=== PATIENT | female | born 1945 | race African-American/Black ===

== ENCOUNTER 2017-10-28 07:00 | Inpatient (IN) | payer OTHER, MEDICARE ==
[~2017-10-28] VITALS: Ht 154.9 cm; Wt 90.3 kg
[2017-11-26] MEDS ORDERED: ASPIRIN EC81 M1 PO (15:43)
[2017-11-26] MEDS ORDERED: AZULFIDINE500 M1 (15:43)
[2017-11-26] MEDS ORDERED: B-121000 MC3 PO (15:44)
[2017-11-26] MEDS ORDERED: VOLTAREN100 GM TOP (15:44)
[2017-11-26] MEDS ORDERED: ESTRADIOL1 EAC7 (15:45)
[2017-11-26] MEDS ORDERED: FOLIC ACID1 M1 PO (15:45)
[2017-11-26] MEDS ORDERED: SERTRALINE HCL50 MG PO (15:46)
[2017-11-26] MEDS ORDERED: MECLIZINE HCL25 MG PO (15:46)
[2017-11-26] MEDS ORDERED: OMEPRAZOLE20 M3 PO (15:46)
[2017-11-26] MEDS ORDERED: TOPROL XL25 M1 PO (15:47)
[2017-11-26] MEDS ORDERED: NITROFURANTOIN100 M5 PO (15:47)
--- NOTE | 2017-11-27 10:35 | Admission Core Measures ---
Acute Coronary Syndrome (CM) ACS Core Measures Acute Coronary Syndrome Diagnosis No Congestive Heart Failure (NEW) CHF Core Measures Congestive Heart Failure Diagnosis No Cerebrovascular Accident CVA Core Measures CVA/TIA Diagnosis No Venous Thromboembolism VTE Core Danis (View Protocol) VTE Risk Factors Surgery No Mechanical VTE Prophylaxis d/t N/A MechProphylax Ordered No VTE Pharm Prophylaxis d/t NA PharmProphylax ordered HOME MEDS Home Med List Aspirin (Ecotrin*) 81 MG TABLET.DR 1 TAB PO DAILY CARDIAC (Reported) Cyanocobalamin (Vitamin B-12) (B-12) 1,000 MCG TABLET 1 TAB PO DAILY SUPPLMENT (Reported) Diclofenac Sodium (Voltaren) 1 % GEL..GRAM. 1 GM TOP 4 TIMES/DAY PAIN ( Reported) Folic Acid 1 MG TABLET 1 TAB PO DAILY SUPPLEMENT (Reported) Meclizine HCl 25 MG TABLET 1 TAB PO TIDPRN VERTIGO (Reported) Metoprolol Succ XL (Toprol XL) 25 MG TAB 1 TAB PO DAILY CARDIAC (Reported) Nitrofurantoin Macrocrystal (Nitrofurantoin) 100 MG CAPSULE 1 CAP PO BID UTI (Reported) Omeprazole 20 MG TABLET.DR 1 TAB PO DAILY GERD (Reported) Sertraline HCl 50 MG TABLET 1 TAB PO DAILY DEPRESSION (Reported)
[2017-11-27] MEDS ORDERED: ASPIRIN EC81 M1 PO (11:06)
[2017-11-27] MEDS ORDERED: MIRALAX17 G1 PO (11:06)
[2017-11-27] MEDS ORDERED: COLACE100 M1 PO (11:06)
[2017-11-27] MEDS ORDERED: DILAUDID2 M1 PO (11:06)
--- NOTE | 2017-11-27 11:11 | Patient Discharge Instructions ---
Discharge Instructions General Discharge Information You were seen/treated for: Left hip pain You had these procedures: Left total hip revision Watch for these problems: Fever over 100.4 Redness and swelling around wound Drainage from wound Numbness and tingling in left lower extremity Unable to bear weight on left lower extremity Chest pain or shortness of breath No bath, but you may shower: Yes Other wound care: Daily dry dressing change Keep incision clean and dry Diet Continue normal diet: Yes Activity Other activity limits: Toe-touch weightbearing on left leg for 6 weeks. Acute Coronary Syndrome Inclusion Criteria At DC or during hospital stay patient has or had the following: ACS DIAGNOSIS No Discharge Core Measures Meds if any: Prescribed or Continued at Discharge Meds if any: NOT Prescribed or Continued at Discharge Congestive Heart Failure Inclusion Criteria At DC or during hospital stay patient has or had the following: CHF DIAGNOSIS No Discharge Core Measures Meds if any: Prescribed or Continued at Discharge Meds if any: NOT Prescribed or Continued at Discharge Cerebrovascular accident Inclusion Criteria At DC or during hospital stay patient has or had the following: CVA/TIA Diagnosis No Discharge Core Measures Meds if any: Prescribed or Continued at Discharge Meds if any: NOT Prescribed or Continued at Discharge Venous thromboembolism Inclusion Criteria VTE Diagnosis No VTE Type NONE VTE Confirmed by (Test) NONE Discharge Core Measures - Per Current guidelines, there needs to be overlap - treatment for the first 5 days of Warfarin therapy. - If discharged on Warfarin prior to 5 days of - overlap therapy, the patient will need to be - assessed for post discharge needs including - *Post discharge parental anticoagulation - *Warfarin and/or parental anticoagulation education - *Follow up date to check INR post discharge At least 5 days overlap therapy as Inpatient No Meds if any: Prescribed or Continued at Discharge Note: Overlap Therapy is Warfarin and Anticoagulant Meds if any: NOT Prescribed or Continued at Discharge
--- NOTE | 2017-11-27 11:13 | Surgical Discharge Summary ---
Visit Information Visit Dates Admission Date: 11/27/17 Discharge Date: 11/30/17 History of Present Illness Chief Complaint: Left hip pain Surgical History Pertinent Surgical History: hip replacement Review of Systems: As per [facility] Hospital Course Course Attending Physician: Reece Dexter MD Primary Care Physician: Edmar FORREST, [facility] Course: Patient tolerated procedure well. Postoperatively, she was tolerating regular diet, voiding spontaneously, pain was well managed, she was ambulating (TTWB on LLE) with physical therapy using a rolling walker. Her dressing was changed on postop day #2, incision was noted to be clean and dry with no signs of infection. She was cleared for discharge to [facility]. Patient was given instructions to follow-up with Dr. Dexter in 6 weeks. She was told to call sooner with any questions or concerns Allergies: Coded Allergies: ibuprofen (UNCLEAR REACTION 11/26/17) PER PRE-OP ORDER SHEET FROM [facility]. -CG 11/26/17 Significant Procedures: Left total hip revision Disposition Summary Disposition Principal Diagnosis: Failure of prior left hip prosthesis Additional Diagnosis: Same Discharge Disposition: SNF Discharge Instructions General Discharge Information Code Status: Full Code Patient's Diet: Regular Patient's Activity: Toe-touch weight bearing on Left lower extremity for 6 weeks Follow-Up Instructions/Appts: Follow-up with Dr. Dexter in 6 weeks. Call sooner with any questions or concerns Medications at Discharge Discharge Medications: Stop taking the following medications: Aspirin (Ecotrin*) 81 MG TABLET. ORAL DAILY Nitrofurantoin Macrocrystal (Nitrofurantoin) 100 MG CAPSULE ORAL TWICE DAILY Continue taking these medications: Sulfasalazine (Azulfidine) 500 MG TABLET Instructions: 3 TABLETS AM AND PM, TWO TABLETS AT NOON Cyanocobalamin (Vitamin B-12) (B-12) 1,000 MCG TABLET 1 Tablet ORAL DAILY Diclofenac Sodium (Voltaren) 1 % GEL..GRAM. 1 Gram On the skin 4 TIMES A DAY Instructions: apply to affected area(s) Estradiol (Estradiol) 0.1 MG/24 HOUR PATCH.TDWK Instructions: TWICE WEEKLY Folic Acid (Folic Acid) 1 MG TABLET 1 Tablet ORAL DAILY Meclizine HCl (Meclizine HCl) 25 MG TABLET 1 Tablet ORAL THREE TIMES A DAY NEEDED Omeprazole (Omeprazole) 20 MG TABLET.DR 1 Tablet ORAL DAILY Sertraline HCl (Sertraline HCl) 50 MG TABLET 1 Tablet ORAL DAILY Metoprolol Succ XL (Toprol XL) 25 MG TAB 1 Tablet ORAL DAILY Start taking the following new medications: Aspirin (Ecotrin*) 81 MG TABLET.DR 1 Tablet ORAL TWICE DAILY Qty = 60 No Refills Docusate Sodium (Colace) 100 MG CAPSULE 1 Capsule ORAL TWICE DAILY Qty = 14 No Refills Instructions: STOP TAKING IF YOU DEVELOP LOOSE STOOL/DIARRHEA Hydromorphone HCl (Dilaudid) 2 MG TABLET 1-2 Tablet ORAL EVERY 4-6 HOURS NEEDED as needed for PAIN Qty = 36 No Refills Polyethylene Glycol 3350 (Miralax) 17 GRAM POWD.PACK 1 Packet ORAL DAILY Qty = 7 No Refills Instructions: dissolve in water. STOP TAKING IF YOU DEVELOP LOOSE STOOL/DIARRHEA Copies To: Edmar FORREST, Fanny
--- NOTE | 2017-11-27 15:51 | Operative Report ---
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 After induction of spinal anesthesia and administration of appropriate pre-operative antibiotics, the patient was positioned supine on the operating room table and all bony prominences were well padded. After performing a surgical timeout, the left lower extremity was prepped and draped in the usual sterile fashion. A direct anterior approach was made to the F to hip. The incision was carried sharply through superficial soft tissues to the level of the fascia. Meticulous hemostasis was maintained with Bovie electocautery. The fascia over the tensor fascia carlos muscle was opened sharply and the interval between the TFL and the sartorius was entered bluntly taking care to stay lateral to the lateral femoral cutaneous nerve. Retractors were placed around the femoral neck and the pericapsular fat was identified. The ascending branches of the lateral femoral circumflex vessels were identified and carefully coagulated. The pericapsular fat and anterior pseudocapsule were then removed with the use of Bovie electric cautery. Once the capsule was removed was obvious that the acetabular component was nearly vertical and motion was noted at the bone prosthesis interface. The hip was dislocated and the femoral head was disimpacted from the trunnion without difficulty. The stem was inspected and found to be well fixed. Exposure continued until the acetabular component could be seen circumferentially. As the component was already quite loose it was simply gripped with a rongeur and removed without difficulty. Quite a bit of periacetabular bony damage was noted. There was a large deficiency in the anterior wall. The cup had migrated quite superiorly. The true medial wall was identified. Utilizing sequentially increasing reamers a new acetabular cavity was created utilizing a high hip center. Once satisfactory stability of the reamer was obtained, a 58mm Styrker Trident Tritanium Hemispherical revision cup was implacted into place. Satisfactory stability was obtained. Multiple screws were used for supplemental fixation. It was then fit with a 36 mm 0 Trident X3 polyethylene insert. The Jesus and nephew trunnion was then trialed with a 36 mm +4 Oxinium femoral head. This yielded excellent stability and roman catholic of leg lengths. The trial head was removed and the final head was impacted into place. The hip was reduced and put through a full range of motion and found to be quite stable. The articular space was then irrigated with sterile saline. The periarticular soft tissues were infilitrated with Marcaine. The fascial layer was closed with interrupted #1 vicryl suture and the skin was re-approximated with interrupted 2 -0 vicryl. The skin was closed with a running 3-0 V-Lock suture. Steri-strips and a sterile dressing were applied. The patient was awakened and taken to the recovery room in satisfactory condition.
--- NOTE | 2017-11-27 16:52 | PN- Student ---
Marcelle Ly 11/27/17 1642: Subjective Subjective: Pt reports feeling well after surgery. She is in minimal pain. Denies any numbness or tingling in her extremities. Denies nausea/vomiting. Denies any CP, SOB, difficulty breathing, headache or dizziness. Objective Objective: Vitals: See EMR General: Pt lying in bed, appears comfortable, NAD. Cardio: Regular rate and rhythm. S1 and S2. No murmurs, rubs or gallops. Pulm: Breath sounds auscultated anteriorly with no wheezes, rhonchi or rales. Abdomen: Normoactive bowel sounds. Soft, non-distended. Non-tender to palpation. Extremities: Dressing and drain in place on left leg. Gross motor and sensation intact and equal bilaterally. Plantar and dorsiflexion 5/5 in right lower extremity and 4/5 left lower extremity. Posterior tibiabils pulses palpated bilaterally. Calves are soft and non-tender bilaterally. Results Results: Microbiology 11/27 1320 URINE OR: Urine Culture - RECD Assessment/Plan Assessment: 72 year old F, with PMH HTN, GERD, vertigo, depression, breast CA, and FAHAD, who is POD#0 s/p left total hip revision due to prior failed left total hip replacement. Pt tolerated the procedure well and post-operative pain is well controlled. Plan: Continue to monitor and control pain as needed. PT to see patient. Toe touch weight bearing x 6 weeks. Adame in overnight, will re-eval in am. Continue hemovac on self suction until output decreases. 24 hours kadeem-op antibx. Regular diet as tolerated. Asa 81 mg bid for DVT ppx. Continue IVF overnight. ALPs in place for DVT ppx. D/c planning, planning to go to [facility] ([facility] Likely will stay 2 nights here. Follow up am labs. Dressing change POD #2. SteveNuha 11/27/17 4139: Objective Objective: VSS, afebrile Assessment/Plan Plan: Agree with above. Pt is stabel. No complaints. Pt had recent UTI, will FU OR urine culture and get UA now TTWB x 6weeks adame overnight.
[2017-11-27 17:25] VITALS: BP 120/70
--- NOTE | 2017-11-27 17:26 | RADIOLOGY REPORT ---
EXAMINATION: XR HIP, LEFT CLINICAL INFORMATION: Status post revision hip arthroplasty COMPARISON: None TECHNIQUE: Two views of the left hip. FINDINGS: The femoral head prosthesis is well centered within the acetabular cup which is stabilized by several screws. The acetabular cup exhibits lateral version of approximately 42 degrees and anteversion of approximately 30 degrees. The tip of the femoral stem is well-positioned in the medullary cavity of the proximal femoral diaphysis. No acute periprosthetic fracture. Drainage tube in place. Postoperative soft tissue gas at the hip. IMPRESSION: There are expected postoperative changes from revision left hip arthroplasty. Alignment is normal. The arthroplasty components are in satisfactory position. No acute periprosthetic fracture.
[2017-11-27 20:00] VITALS: BP 114/60
[2017-11-27 22:00] VITALS: BP 108/60
[2017-11-28 00:02] VITALS: BP 114/56
[2017-11-28 04:00] VITALS: BP 136/68
--- NOTE | 2017-11-28 08:11 | PN- Orthopedic ---
See Addendum Subjective Subjective: Patient sitting in bed. Complains of minimal pain in left hip. Tolerating regular diet. Sullivan in place. Passing flatus. Has not been out of bed yet. Patient denies chest pain, shortness of breath, nausea, headache or dizziness. Objective Vital Signs and I&Os Vital Signs Date Time Temp Pulse Resp B/P B/P Pulse O2 O2 Flow FiO2 Mean Ox Delivery Rate 11/28 0808 98.8 65 16 136/68 11/28 0400 98.8 65 16 136/68 97 CPAP 11/28 0155 95 Room Air 11/28 0002 98.6 77 18 114/56 96 Room Air 11/27 2200 97.7 62 18 108/60 93 Room Air 11/27 2000 98.0 66 18 114/60 98 Room Air 11/27 1725 97.6 64 18 120/70 97 Room Air Intake & Output 11/28 1600 11/28 0800 11/28 0000 11/27 1600 11/27 0800 11/27 0000 Intake Total 840 390 Output Total 1050 340 Balance -210 50 Intake, IV 600 150 Intake, Oral 240 240 Number 0 Bowel Movements Output, 200 90 Drainage Output, Urine 850 250 Patient 199 lb Weight Weight Reported by Patient Measurement Method Physical Exam: General- NAD Resperations- clear bialaterlly Cardiac-regular rate and rhythm Abdomen-soft nontender with positive bowel sounds Extremities-dressing is clean and dry, thigh is soft with no erythema, minimal tenderness around incision. Hemovac in place on self suction, output 200 cc sanguinous drainage overnight. Calves are soft bilaterally and non-tenderness. Distal sensory and motor function is intact. 2+ dorsalis pedis pulse bilaterally Current Medications: Current Medications Sig/Trip Start time Last Medication Dose Route Stop Time Status Admin Acetaminophen 1,000 MG Q8H 11/27 1945 DC 11/28 IV 11/28 0346 0426 Acetaminophen 1,000 MG Q8 11/27 1400 DC 11/27 IV 11/28 0601 1730 Acetaminophen 0 .STK-MED ONE 11/27 1235 DC PO Acetaminophen 975 MG ONCE 11/27 0000 DC PO 11/27 2359 Aspirin 81 MG BID 11/27 2100 AC 11/28 PO 0807 Cefazolin Sodium 2 GM IQ8 11/27 1600 DC 11/27 N/A 1 UNIT IV 11/28 0029 2343 Cefazolin Sodium 2,000 MG ONCE 11/27 0000 DC IV 11/27 2359 Dextrose/Sodium 1,000 ML .[id number] 11/27 1745 DC 11/27 Chloride IV 2343 Docusate Sodium 100 MG BID 11/27 2100 AC 11/28 PO 0807 Hydromorphone HCl 2 MG Q4P PRN 11/27 1745 AC 11/28 PO 0547 Hydromorphone HCl 0 .STK-MED ONE 11/27 1640 DC .ROUTE Influenza Virus 0.5 ML ONCE ONE 11/27 1845 DC Vaccine IM 11/27 184 Ketorolac 15 MG Q6P PRN 11/27 1045 AC Tromethamine IM Meclizine HCl 25 MG TID PRN 11/27 1100 AC PO Metoprolol Succinate 25 MG DAILY 11/28 0900 AC 11/28 PO 0808 Midazolam HCl 0 .STK-MED ONE 11/27 1214 DC .ROUTE Morphine Sulfate 2 MG Q2P PRN 11/27 1745 AC IV Omeprazole 20 MG DAILY AC 11/28 0700 AC 11/28 PO 0542 Ondansetron HCl 4 MG Q6P PRN 11/27 1745 AC IV Oxycodone HCl 0 .STK-MED ONE 11/27 1234 DC PO Oxycodone HCl 10 MG ONCE 11/27 0000 DC PO 11/27 2359 Polyethylene Glycol 17 GM DAILY 11/28 0900 AC 11/28 PO 0807 Sertraline HCl 50 MG DAILY 11/28 0900 AC 11/28 PO 0808 Sulfasalazine 1,000 MG DAILY 11/28 1200 AC PO Sulfasalazine 1,500 MG BID 11/27 2100 AC 11/28 PO 0807 Tranexamic Acid 0 .STK-MED ONE 11/27 1214 DC IV Results Last 48 Hours of Labs: Laboratory Tests 11/28 11/27 0620 1853 Chemistry Sodium Pending Potassium Pending Chloride Pending Carbon Dioxide Pending Anion Gap Pending BUN Pending Creatinine Pending BUN/Creatinine Ratio Pending Hematology CBC w Diff Pending WBC Pending RBC Pending Hgb Pending Hct Pending MCV Pending MCH Pending MCHC Pending RDW Pending Plt Count Pending MPV Pending Urines Urine Color (YEL,AMB,STR) YEL Urine Clarity (CLEAR) CLEAR Urine pH (5.0 - 8.0) 6.0 Ur Specific [place] (1.001 - 1.035) 1.020 Urine Protein (NEG,<30 MG/DL) NEG Urine Ketones (NEG) NEG Urine Nitrite (NEG) NEG Urine Bilirubin (NEG) NEG Urine Urobilinogen (0.1 - 1.0 EU/dl) 0.2 Ur Leukocyte Esterase (NEG) NEG Ur Microscopic EXAM NOT REQUIRED Urine Hemoglobin (NEG) NEG Urine Glucose (N MG/DL) NEG Assessment/Plan Assessment/Plan 72-year-old female with history of HTN, GERD, vertigo, depression, breast CA, and FAHAD, who is POD#1 s/p left total hip revision due to prior failed left total hip replacement. Stable. Plan: Pain managementtry to limit narcotics as patient has history of postop confusion PT to see patient- Toe touch weight bearing x 6 weeks. DC Sullivan this morning Continue hemovac on self suction, will reevaluate output this afternoon 24 hours kadeem-op antibx. Regular diet as tolerated. DC IV fluids this morning Asa 81 mg bid for DVT ppx. ALPs in place for DVT ppx. D/c planning, planning to go to [facility] ([facility] Likely will stay 2 nights here. Follow up am labs. Dressing change POD #2. Core Measures Venous Thromboembolism VTE Risk Factors Surgery No Mechanical VTE Prophylaxis d/t N/A MechProphylax Ordered No VTE Pharm Prophylaxis d/t NA PharmProphylax ordered
[2017-11-28 08:35] LABS: ABSOLUTE BASOPHIL COUNT 0 /CUMM (0.0-0.2); ABSOLUTE EOSINOPHIL COUNT 0 /CUMM (0.0-0.7); ABSOLUTE GRANULOCYTE CT 8.3 /CUMM (1.4-6.5); ABSOLUTE LYMPH COUNT 1.1 /CUMM (1.2-3.4); ABSOLUTE MONOCYTE COUNT 0.8 /CUMM (0.10-0.60); BASOPHIL % 0.3 % (0.0-2.0); EOSINOPHIL % 0.1 % (0-5); GRANULOCYTE % 80.6 % (42.2-75.2); HEMATOCRIT 29.6 % (37-47); MEAN CORPUSCULAR HGB 24.9 PG (27.0-31.0); MEAN CORPUSCULAR HGB CONC 31.7 G/DL (33.0-37.0); MEAN CORPUSCULAR VOLUME 78.7 FL (81.0-99.0); MEAN PLATELET VOLUME 10.4 FL (7.4-10.4); PLATELET COUNT 156 /CUMM (130-400); RBC DISTRIBUTION WIDTH 14.8 % (11.5-14.5); RED BLOOD CELL CT 3.76 /CUMM (4.20-5.40); WHITE BLOOD CELL COUNT 10.3 /CUMM (4.8-10.8)
[2017-11-28 09:31] VITALS: BP 120/78
[2017-11-28 12:48] VITALS: BP 130/60
[2017-11-28 14:47] VITALS: BP 110/55
[2017-11-28 20:30] VITALS: BP 118/50
[2017-11-29 06:18] VITALS: BP 136/56
--- NOTE | 2017-11-29 07:28 | PN- Orthopedic ---
Subjective Subjective: pod#2 s/p left peyman no major issues overnight mirtha cp, sob doing well with pt tolerating diet Objective Vital Signs and I&Os Vital Signs Date Time Temp Pulse Resp B/P B/P Pulse O2 O2 Flow FiO2 Mean Ox Delivery Rate 11/29 0518 97.8 82 20 136/56 94 11/29 0000 CPAP 11/28 2029 98.4 74 20 118/50 92 11/28 1447 98.0 65 20 110/55 93 Room Air 11/28 1248 997.8 62 20 130/60 99 Room Air 11/28 0931 98.1 67 20 120/78 94 Room Air 11/28 0924 Room Air 11/28 0808 98.8 65 16 136/68 Intake & Output 11/29 0800 11/29 0000 11/28 1600 11/28 0800 11/28 0000 11/27 1600 Intake Total 360 880 720 840 390 Output Total 250 990 12 8803 340 Balance 110 630 645 -210 50 Intake, IV 0 600 150 Intake, Oral 360 880 720 240 240 Number 0 0 Bowel Movements Output, 75 200 90 Drainage Output, Urine 250 250 850 250 Patient 199 lb Weight Weight Reported by Patient Measurement Method Physical Exam: cv: rrr lungs: clear abd: soft, +bs ext: drsg changed, wound c/d/i distal cms intact, no claf tenderness Assessment/Plan Assessment/Plan ortho stable plan cont oob with pt cont current regime snf tomorrow Core Measures Venous Thromboembolism VTE Risk Factors Surgery No Mechanical VTE Prophylaxis d/t N/A MechProphylax Ordered No VTE Pharm Prophylaxis d/t NA PharmProphylax ordered
[2017-11-29 14:45] VITALS: BP 110/62
[2017-11-29 22:20] VITALS: BP 124/48
[2017-11-30 06:24] VITALS: BP 118/54
--- NOTE | 2017-11-30 07:20 | PN- Orthopedic ---
Subjective Subjective: Patient reports having a BM yesterday. She reports pain is controlled. She is tolerating a diet without nausea or vomiting. She offers no complaints. Objective Vital Signs and I&Os Vital Signs Date Time Temp Pulse Resp B/P B/P Pulse O2 O2 Flow FiO2 Mean Ox Delivery Rate 11/30 0902 90 98/58 11/30 0624 98.8 80 20 118/54 94 Room Air 11/29 2220 98.7 85 18 124/48 93 Room Air 11/29 1600 Room Air 11/29 1445 98.5 81 20 110/62 93 Room Air Intake & Output 11/30 0800 11/30 0000 11/29 1600 11/30 0700 11/29 0000 Intake Total 310 180 360 360 880 Output Total 400 250 250 Balance 310 180 -40 110 630 Intake, Oral 310 180 360 360 880 Number 1 1 Bowel Movements Output, Urine 400 250 250 Physical Exam: Gen - resting comfortably in nad Cardiac - S1S2 ntoed Lungs - CTAB Abd - soft, nontender Ext - compression stockings/alps in place, no edema or calf pain, L hip dressing c/d/i, incision healing well with no signs of infcetion, redressed, compartment soft, motor and senosry intact Current Medications: Current Medications Sig/Trip Start time Last Medication Dose Route Stop Time Status Admin Aspirin 81 MG BID 11/27 2099 AC 11/30 PO 0809 Cyanocobalamin 1,000 MCG DAILY 11/28 899 AC 11/30 PO 0810 Docusate Sodium 100 MG BID 11/27 2099 AC 11/30 PO 0809 Folic Acid 1 MG DAILY 11/28 899 AC 11/30 PO 0809 Hydromorphone HCl 4 MG Q4P PRN 11/28 1600 AC 11/30 PO 0809 Hydromorphone HCl 2 MG Q4P PRN 11/27 1745 AC 11/29 PO 2317 Meclizine HCl 25 MG TID PRN 11/27 1100 AC PO Metoprolol Succinate 25 MG DAILY 11/28 899 AC 11/28 PO 0808 Morphine Sulfate 2 MG Q2P PRN 11/27 1745 AC IV Omeprazole 40 MG DAILY AC 11/29 0700 AC 11/30 PO 0636 Ondansetron HCl 4 MG Q6P PRN 11/27 1745 AC IV Polyethylene Glycol 17 GM DAILY 11/28 899 AC 11/30 PO 0811 Sertraline HCl 50 MG DAILY 11/28 0900 AC 11/30 PO 0810 Sulfasalazine 1,000 MG DAILY 11/28 1200 AC 11/30 PO 08 Sulfasalazine 1,500 MG BID 11/27 2100 AC 11/30 PO 0810 Assessment/Plan Assessment/Plan 72 F with history of HTN, GERD, vertigo, depression, breast CA and FAHAD, who is POD 3 s/p left total hip revision due to prior failed left total hip replacement who is recovering well, stable for discharge Cont current care DVT ppx - alps, ASA 81 bid TTWB x 6 weeks D/c to [facility] today D/w Dr. Dexter Core Measures Venous Thromboembolism VTE Risk Factors Surgery No Mechanical VTE Prophylaxis d/t N/A MechProphylax Ordered No VTE Pharm Prophylaxis d/t NA PharmProphylax ordered
[2017-11-30 13:48] VITALS: BP 98/58
== END 2017-11-30 14:55 | DRG 467 ==
LOC: 2NA 11-27 02:40 → SDA 11-27 02:40 → ENRESERV 11-27 16:51 → ENTRNSPT 11-27 17:01 → EDTRNSPTSTS 11-27 17:08 → 2NA 11-27 17:23 → CMPTRNSPT 11-27 17:57 → 2NA 11-30 14:55
PROVIDERS: Physician Assistant Surgical
PROC: 0SPB0JZ Removal of Synthetic Substitute from Left Hip Joint, Open Approach (ICD-10-PCS; principal; 2017-11-27)
PROC: 0SRB02A Replacement of Left Hip Joint with Metal on Polyethylene Synthetic Substitute, Uncemented, Open Approach (ICD-10-PCS; principal; 2017-11-27)
PROC: 0SPB09Z Removal of Liner from Left Hip Joint, Open Approach (ICD-10-PCS; principal; 2017-11-27)
DX: T84.091A Other mechanical complication of internal left hip prosthesis, initial encounter (principal); K50.90 Crohn's disease, unspecified, without complications; M85.80 Other specified disorders of bone density and structure, unspecified site; F32.9 Major depressive disorder, single episode, unspecified; G47.33 Obstructive sleep apnea (adult) (pediatric); E66.9 Obesity, unspecified; Z68.37 Body mass index [BMI] 37.0-37.9, adult; K21.9 Gastro-esophageal reflux disease without esophagitis; D86.0 Sarcoidosis of lung; I65.29 Occlusion and stenosis of unspecified carotid artery; N39.41 Urge incontinence; E78.5 Hyperlipidemia, unspecified; Z85.3 Personal history of malignant neoplasm of breast
CPT/HCPCS: 2NAP; 36415; 36592; 73502-LT; 81003; 82436; 87086; 93005; 93010; 97110-GO; 97116-GO; 97161-GP; 97530-GO; EXP; J0131; J0690; J0735; J3490; J7042; Q2036